=== PATIENT | female | born 1985 | race Two or more races ===

== ENCOUNTER 2020-05-15 00:59 | Inpatient (IN) ==
[2020-05-15] MEDS ORDERED: miSOPROStoL 50 MCG TAB PO PRN (02:00)
[2020-05-15] MEDS ORDERED: OXYTOCIN 30 UNITS/500 ML BAG IV PRN ×3 (02:00→11:07)
--- NOTE | 2020-05-15 02:10 | History & Physical Report ---
Date of Service May 15, 2020 Assessment & Plan (1) Supervision of normal intrauterine in primigravida: -Tracing category 1 with accelerations and variability -Gross rupture with no active labor -Discussed with patient -Recommend initial labor augmentation with p.o. Cytotec -Pain management as needed -Anticipate vaginal delivery (2) pyelectasis: -We will make pediatrics aware History of Present Illness Chief Complaint: rupture of membranes Primary Care Provider: NO PCP The patient is a 34-year-old 2 para 0, with an EDC of 19 May, at 39+ weeks gestational age, who presents to labor and delivery with spontaneous rupture of membranes. Patient states that her membranes ruptured at approximately 0000 hours on day of admission. She describes the fluid as clear. She has had some mild contractions since the rupture of the membranes. Patient's course remarkable for some pyelectasis first diagnosed on anatomy ultrasound. This was followed with serial ultrasounds and has been clinically stable throughout the . Laboratory values for the show a blood type of O+, antibody negative, rubella immune, hepatitis B negative, she had a negative cell free DNA screen, she had a normal 1 hour Glucola at 16 weeks, she had an elevated 1 hour Glucola 28 weeks, a normal 2- hour glucose tolerance test, and a negative third trimester beta strep culture. Allergies Allergy/AdvReac Type Severity Reaction Status Date / Time meloxicam Allergy rash Verified 05/15/20 01:22 Home Medications Medication Instructions Recorded Confirmed Type prenat.vits,mario,[id number] 1 tab PO DAILY 06/22/19 05/15/20 History ferrous sulfate 325 mg (65 mg 325 mg PO DAILY 12/29/19 05/15/20 History iron) tablet breast pump #1 ea 03/23/20 05/13/20 Rx Patient History Medical History (Updated 05/15/20 @ 02:08 by Arthur Farrar Jr, MD, FACOG) Abnormal biochemical finding on screening of mother, antepartum Dilated renal pelvis Encounter for anatomic survey Encounter for anatomic survey Missed with demise before 20 completed weeks of gestation Supervision of normal intrauterine in primigravida Varicella vaccine Surgical History [place] teeth removed Family History Sister Schizophrenia Social History (Updated 10/26/19 @ 14:55 by Dana Finley) Smoking Status: Never smoker Hx Alcohol Use: No Hx Substance Use: No Preferred Language: Portuguese Communication Ability: Effective 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 Beliefs That Will Affect Care: None marital status: marital status details: Liban Perez (32) [phone] Current Living Situation: Spouse Current Living Situation Comment: Liban 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[employer], 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 Other Information That Helps Us Care for You: No Assistive Devices: Glasses Physical Exam Constitutional: WD/WN, vitals as above Respiratory: Auscultation: lungs clear to auscultation bilaterally Cardiovascular: RRR, no murmur, no edema Extremities: no calf tenderness Gastrointestinal (Abdomen): Gravid: Vertex, positive heart tones, mild palpable contractions, estimated weight of 7 and half pounds Genitourinary: Cervix: Fingertip/50%/-1, gross rupture (per L&D nurse) Results & Data ([facility]) Vital Signs (Past 12 Hours) Vital Signs Temp Pulse Resp BP 05/15/20 01:24 18 05/15/20 01:20 98.4 F 77 18 136/75 Coding Level of Care Code None Diagnoses Supervision of normal intrauterine in primigravida Z34.00 pyelectasis
[2020-05-15 02:41] LABS: Hematocrit (blood only) 39.8 % (37-47); Hemoglobin 13.1 g/dL (12.0-16.0); Mean Corpuscular Hemoglobin 29.5 pg (25-34); Mean Corpuscular Hgb Conc 32.9 g/dL (32-36); Mean Corpuscular Volume 89.6 fL (80-100); Mean Platelet Volume 10.6 fL (7.4-10.4); Platelet Count 243 K/uL (130-400); RDW Coefficient of Variation 13.5 % (11.5-14.5); RDW Standard Deviation 44.2 fL (36.4-46.3); Red Blood Count 4.44 M/uL (4.2-5.4); White Blood Count 9.44 K/uL (4.8-10.8)
[2020-05-15] MEDS ORDERED: ePHEDrine sulfate 50 MG/ML AMP ONE (05:29)
[2020-05-15] MEDS ORDERED: SODIUM CHLORIDE 0.9% INJ 10 ML VIAL ONE (05:30)
[2020-05-15] MEDS ORDERED: BUPIVACAINE 0.25% 30 ML VIAL ONE (05:30)
[2020-05-15] MEDS ORDERED: fentaNYL 2MCG/ML ROPIVACAINE 1.25MG/ML 100 ML BAG EPI ONE (05:30)
[2020-05-15] MEDS ORDERED: fentaNYL citrate 100 MCG/2 ML VIAL ONE (05:30)
[2020-05-15] MEDS: LACTATED RINGER'S 1,000 ML IV PRN ×2 (05:38→08:09)
[2020-05-15] MEDS ORDERED: ePHEDrine sulfate 50 MG/ML AMP IV PRN (06:22)
[2020-05-15] MEDS ORDERED: NALOXONE HCL 0.4 MG/1 ML VIAL/CARP IV PRN (06:22)
[2020-05-15] MEDS ORDERED: fentaNYL 2MCG/ML ROPIVACAINE 1.25MG/ML 100 ML BAG EPI PRN (06:22)
[2020-05-15] MEDS ORDERED: NALOXONE HCL 1 MG in SODIUM CHLORIDE 0.9% 1000ML 1,000 ML IV PRN (06:22)
[2020-05-15] MEDS ORDERED: diphenhydrAMINE 50 MG/ML VIAL IV PRN (06:22)
[2020-05-15] MEDS ORDERED: ONDANSETRON INJ 2 MG/ML 2 ML VIAL IV PRN (06:22)
[2020-05-15] MEDS ORDERED: PROMETHAZINE HCL 6.25 MG in SODIUM CHLORIDE 0.9% 50 ML IV PRN (06:22)
--- NOTE | 2020-05-15 06:22 | Anesthesiology Consultation ---
Date of Service May 15, 2020 Assessment & Plan (1) Encounter for pre-operative examination: Chart Review Chart Review: Patient NOT seen in Pre Admission Testing and Acceptable Risk for Labor Epidural Consults Requested none ASA ASA2 Proposed Anesthesia Anesthesia Type: Labor Epidural Risk / Benefits Reviewed With: PT / POA / Parent / Guardian, Accepts Plan and Informed Consent Obtained History Height/Weight Height: 5 ft 6.14 in Weight: 83.461 kg Allergies Allergy/AdvReac Type Severity Reaction Status Date / Time meloxicam Allergy rash Verified 05/15/20 01:22 Medications Home Medications Medication Instructions Recorded Confirmed Last Taken prenat.vits,mario,nvf-[id number]-misnk 1 tab PO DAILY 06/22/19 05/15/20 05/14/20 08:00 ferrous sulfate 325 mg (65 mg 325 mg PO DAILY 12/29/19 05/15/20 05/14/20 iron) tablet breast pump #1 ea 03/23/20 05/13/20 Unknown Active Medications Generic Name Dose Route Start Last Admin Trade Name Freq PRN Reason Stop Dose Admin Lactated Ringer's 1,000 mls @ 125 mls/hr 05/15/20 02:00 05/15/20 06:19 Lr IV 05/17/20 01:59 125 mls/hr .Q8H PRN Infusion L&D Protocol Protocol Misoprostol 50 mcg 05/15/20 02:00 05/15/20 02:20 Misoprostol 50 Mcg Tab PO 06/14/20 01:59 50 mcg Q4H PRN Administration contractions NPO Date Last Intake of Fluids: 05/14/20 Time Last Intake of Fluids: 22:00 Date Last Intake of Solids: 05/14/20 Time Last Intake of Solids: 22:00 Past Medical History Medical History Abnormal biochemical finding on screening of mother, antepartum Dilated renal pelvis Encounter for anatomic survey Encounter for anatomic survey Missed with demise before 20 completed weeks of gestation Supervision of normal intrauterine in primigravida Varicella vaccine Exercise / Class Metabolic Activity II 4-5 Yardwork/Stairs/Walk up hill Past Family History Family History Sister Schizophrenia Past Surgical History Surgical History [place] teeth removed Past Anesthesia History No Hx of Anesthesia Complications and No Family Hx of Anesthesia Complications History of PONV No Hx of PONV and No Hx of Motion Sickness Social History Smoking Status: Never smoker Hx Alcohol Use: No Hx Substance Use: No Physical Exam Vital Signs Last Vital Signs Temp 36.6 C 05/15/20 06:14 Pulse 89 05/15/20 06:18 Resp 20 05/15/20 06:14 BP 112/56 L 05/15/20 06:17 Pulse Ox 99 05/15/20 06:18 ENMT Mouth: no dentition abnormality Thyromental Distance: > or= 3.5 Finger Breadths Mallampati Class: II Neck normal visual inspection Respiratory normal respiratory effort Auscultation: lungs clear to auscultation bilaterally Cardiovascular Rate/Rhythm: regular rate and regular rhythm Psychiatric Orientation: alert Testing Laboratory Results 05/15/20 02:31
--- NOTE | 2020-05-15 08:01 | Labor Progress Brief Note ---
Date of Service May 15, 2020 Subjective Reason For Note: Routine Evaluation (comfortable with the epidural) Assessment & Plan (1) Supervision of normal intrauterine in primigravida: - tracing complete - will begin 2nd stage Admission and Anticipated Discharge Date Admission Date: May 15, 2020 Physical Exam Genitourinary: Cervix: Complete/(+)1 Results & Data ([facility]) Vital Signs (Past 12 Hours) Vital Signs Temp Pulse Resp BP Pulse Ox 05/15/20 07:58 102 H 05/15/20 07:56 98 H 117/64 05/15/20 07:53 81 96 05/15/20 07:48 80 99 05/15/20 07:43 78 98 05/15/20 07:42 76 114/60 05/15/20 07:38 89 98 05/15/20 07:33 84 99 05/15/20 07:30 18 05/15/20 07:28 80 98 05/15/20 07:26 112 H 116/55 L 05/15/20 07:23 83 100 05/15/20 07:18 88 100 05/15/20 07:13 83 98 05/15/20 07:11 80 117/58 L 05/15/20 07:08 84 98 05/15/20 07:03 80 100 05/15/20 07:01 98.1 F 16 05/15/20 06:58 77 112/58 L 98 05/15/20 06:53 77 99 05/15/20 06:48 89 98 05/15/20 06:43 90 100 05/15/20 06:39 89 18 132/72 92 05/15/20 06:38 86 100 05/15/20 06:33 85 100 05/15/20 06:32 80 18 106/56 L 05/15/20 06:29 89 100/57 L 05/15/20 06:28 88 100 05/15/20 06:23 87 99 05/15/20 06:22 83 18 119/54 L 05/15/20 06:21 97 H 91 05/15/20 06:18 89 99 05/15/20 06:17 90 112/56 L 05/15/20 06:14 97.9 F 80 20 115/63 05/15/20 06:13 86 100 05/15/20 06:10 82 20 121/56 L 05/15/20 06:08 89 99 05/15/20 06:03 97 H 98 05/15/20 05:58 88 98 05/15/20 05:53 94 H 100 05/15/20 05:48 87 98 05/15/20 05:43 87 99 05/15/20 05:38 83 98 05/15/20 05:37 82 20 129/63 05/15/20 04:30 97.9 F 75 18 124/75 05/15/20 02:23 98.1 F 18 05/15/20 01:24 18 05/15/20 01:20 98.4 F 77 18 136/75 Coding Level of Care Code None Diagnoses Supervision of normal intrauterine in primigravida Z34.00
[2020-05-15] MEDS ORDERED: ERYTHROMYCIN OP OINT 1 GM PKT ONE (10:08)
--- NOTE | 2020-05-15 10:30 | Delivery Summary ---
Vaginal Delivery Summary Date of Service May 15, 2020 Vaginal Delivery Summary VAVD and 2nd Degree LAC Findings: Viable male infant with Apgars of 9 and 9. Baby delivered over a midline second degree laceration by vacuum extraction. Vacuum extraction for maternal bleeding from laceration. Cord gases cord blood samples obtained. Placenta delivered spontaneously. Midline second-degree laceration repaired with 4-0 and 2-0 Vicryl in a routine fashion. Estimated blood loss 300 cc Labor note: The patient is a 34-year-old 2 para 0, with an EDC of 19 May, at 39+ weeks gestational age, who presents to labor and delivery with spontaneous rupture of membranes. Patient states that her membranes ruptured at approximately 0000 hours on day of admission. She describes the fluid as clear. She has had some mild contractions since the rupture of the membranes. Patient's course remarkable for some pyelectasis first diagnosed on anatomy ultrasound. This was followed with serial ultrasounds and has been clinically stable throughout the . Laboratory values for the show a blood type of O+, antibody negative, rubella immune, hepatitis B negative, she had a negative cell free DNA screen, she had a normal 1 hour Glucola at 16 weeks, she had an elevated 1 hour Glucola 28 weeks, a normal 2- hour glucose tolerance test, and a negative third trimester beta strep culture. Upon admission the patient was grossly ruptured. Her cervix was fingertip dilated and 50% effaced, tracing was category 1. Discussed with the patient and recommended labor induction with p.o. Cytotec. Patient received Cytotec 50 mcg p.o. Contractions increased in intensity. Patient progressed to 4 cm dilatation and became very uncomfortable. Anesthesia was consulted and an epidural was placed. Over the next 4 hours the patient progressed to full dilatation and began her second stage. The patient was pushing effectively but approximately 1-1/2 hours into her second stage she began bleeding briskly from a midline laceration. The vertex was at a +2 station at this point. Because of the brisk bleeding from the laceration recommendation to the patient for a vacuum extraction. Verbal consent obtained. Over the next 2 contractions the baby was delivered over the midline laceration. Cord was clamped and cut. Cord gases and cord blood samples were obtained. Placenta was delivered spontaneously. Uterine atony addressed with IV Pitocin and uterine massage. Inspection of the perineum showed a long midline second-degree laceration. This was repaired with 4-0 and 2-0 Vicryl. Hemostasis was present. Estimated blood loss was 300 cc. Sponge and needle count was correct. [facility] Vaginal Delivery Charge Delivery Type Details: VAVD and 2nd Degree LAC
[2020-05-15 10:39] LABS: Base Excess Cord Arterial Bld -4.1 mEq/L (-9-1.8); CO2 Cord Arterial Blood 58 mmHg (39.1-73.5); HCO3 Cord Arterial Blood 24 mmol/L (19.7-28.5); PO2 Cord Arterial Blood 27 mmHg (4.1-31.7); pH Cord Arterial Blood 7.24 (7.1-7.38)
[2020-05-15 10:40] LABS: Oxygen Sat Cord Arterial Blood < 60.0 % (<60)
[2020-05-15] MEDS ORDERED: BENZOCAINE 20% AER SPR 82.5 GM CAN EXT PRN (11:07)
[2020-05-15] MEDS ORDERED: HYDROCORTISONE ACETATE 25 MG SUPP PR PRN (11:07)
[2020-05-15] MEDS ORDERED: SUPERCREAM 0.870% 15 GM JAR EXT PRN (11:07)
[2020-05-15] MEDS ORDERED: ACETAMINOPHEN W/CODEINE #3 1 TAB PO PRN (11:07)
[2020-05-15] MEDS ORDERED: ACETAMINOPHEN 325 MG TAB PO PRN (11:07)
--- NOTE | 2020-05-15 11:29 | Anesthesia Procedure Note ---
Date of Service May 15, 2020 Anesthesia Post Epidural Note Vital Signs Vital Signs: Temp Pulse Resp BP Pulse Ox 36.7 C 106 H 18 111/59 L 98 05/15/20 08:57 05/15/20 11:18 05/15/20 10:48 05/15/20 11:18 05/15/20 10:08 Pain Intensity Bilateral Lower Abdomen: Pain Intensity: 2 Notes Mental Status: alert / awake / arousable and participated in evaluation Patient Amnestic to Procedure: Yes Nausea / Vomiting: adequately controlled Pain: adequately controlled Airway Patency, RR, SpO2: stable & adequate BP & HR: stable & adequate Hydration State: stable & adequate Neuraxial Anesthesia: was administered and sensory block is resolving Anesthetic Complications: no major complications apparent and Pt Satisfied with anesthetic care Epidural: Removed without complications and With tip intact
[2020-05-15] MEDS ORDERED: DIPHTHERIA/TETANUS/PERTUSSIS 0.5 ML SYR/VIAL IM ONE (11:30)
[2020-05-15] MEDS: DOCUSATE SODIUM 100 MG CAP PO SCH (20:30)
--- NOTE | 2020-05-16 06:28 | Obstetrical Progress Note ---
Date of Service <Makenna Lloyd DO - Last Filed: 05/16/20 07:02> May 16, 2020 Assessment & Plan <Makenna Lloyd DO - Last Filed: 05/16/20 07:02> (1) state: PPD #1 - PNL: Rh pos, RI, GBS neg, COVID neg - Eating well, voiding well, ambulating well. - Patient with headache. Normal BP. No changes in vision. Continue Tylenol and Ibuprofen 600mg Q4H PRN - Routine vaginal delivery care -- OOB, ambulation, continue diet as tolerated - After discharge will have 6 week follow-up with Dr. Farrar. Subjective <Makenna Lloyd DO - Last Filed: 05/16/20 07:02> Johny Blum is a 34 y/o female who is PPD #1 following VAVD at 39 +2 weeks. She reports feeling well overall this morning. She does, however, report a diffuse SWENSON, rated at a 6/10, that has not changed with Tylenol. Minimal abdominal cramping well managed on analgesics. Voiding without dysuria. Tolerating meals overnight without difficulty. Patient has been able to ambulate some. + passing gas but no bowel movement. Has persistent lochia with some improvement this morning. Currently . Review of Systems Denies fever or chills. Denies shortness of breath or cough. Denies chest pain. Denies breast pain. Denies dysuria. Denies leg pain or leg swelling. + headache. Denies lightheadedness, dizziness, or changes in vision. Physical Exam <Makenna Lloyd DO - Last Filed: 05/16/20 07:02> General: Alert, oriented. No acute distress. Cardiac: Regular rate and rhythm. No murmurs. Respiratory: Clear to auscultation bilaterally a/p, no wheezes/rales/rhonchi. No increased work of breathing. Symmetrical chest rise. No respiratory distress. Abdomen: Soft, nontender, nondistended. Bowel sounds present. Uterus: Uterine fundus firm, palpable at umbilicus. Lower Extremities: No lower extremity edema or swelling. No deep calf pain. Beto's negative bilaterally. Results & Data ([facility]) <Makenna Lloyd DO - Last Filed: 05/16/20 07:02> Vital Signs (Past 12 Hours) Vital Signs Temp Pulse Resp BP Pulse Ox 05/16/20 04:25 36.5 C 85 17 108/68 97 05/15/20 23:05 36.6 C 90 16 106/73 100 05/15/20 20:14 36.8 C 87 18 101/69 <Arthur Farrar Jr, MD, FACOG - Last Filed: 05/16/20 07:06> Co-Signing Physician Notes Resident Physician Supervision Note: I was present with Dr. Lloyd during the history and exam. I discussed the case with the resident and agree with the findings and plan as documented in the note. Any exceptions or clarifications are listed here: Pt with pp headache, responsive to Tylenol, not related to maternal position. Will continue routine pp care. Documented By: Arthur Farrar Jr, MD, FACOG Resident Activity Tracking <Makenna Lloyd DO - Last Filed: 05/16/20 07:02> Resident Involvement: Resident Care Provided Care Provided: OB Delivery
[2020-05-16] MEDS: IBUPROFEN 600 MG TAB PO PRN ×2 (08:42→20:09)
[2020-05-16] MEDS: DOCUSATE SODIUM 100 MG CAP PO SCH ×2 (08:42→20:09)
[2020-05-16] MEDS: FERROUS SULFATE 325 MG TAB PO SCH (08:42)
[2020-05-16] MEDS: PRENATAL VITAMIN 1 TAB PO SCH (08:42)
[2020-05-16] MEDS ORDERED: bisacodyL 5 MG TABEC PO SCH (20:00)
[2020-05-17 06:32] LABS: Hematocrit (blood only) 28.2 % (37-47); Hemoglobin 9.3 g/dL (12.0-16.0)
--- NOTE | 2020-05-17 06:39 | Obstetrical Progress Note ---
Date of Service <Makenna Evette Lloyd - Last Filed: 05/17/20 06:38> May 17, 2020 Assessment & Plan <Makenna Evette Lloyd DO - Last Filed: 05/17/20 06:38> (1) state: PPD #2 - PNL: Rh pos, RI, GBS neg, COVID neg - Eating well, voiding well, ambulating well. - Continue Ibuprofen 600mg Q4H PRN - Routine vaginal delivery care -- OOB, ambulation, continue diet as tolerated - After discharge will have 6 week follow-up with Dr. Farrar. Subjective <Makenna Evette Lloyd - Last Filed: 05/17/20 06:38> Johny Blum is a 34 y/o female who is PPD #2 following VAVD w/ 2nd degree laceration repaired at 39 +2 weeks. She reports feeling well overall this morning. Minimal abdominal cramping and 3/10 pain well managed on analgesics. Vo iding without dysuria. Tolerating meals overnight without difficulty. Patient has been able to ambulate some. She is passing gas and has had a bowel movement. Has persistent lochia with some improvement this morning. Currently . To note, patient complained of a 6/10 headache yesterday morning. She reports that this resolved yesterday and has not recurred. Patient with no concerns of headache, vision changes, dizziness, or lightheadedness today. Review of Systems Denies fever or chills. Denies shortness of breath or cough. Denies chest pain. Denies breast pain. Denies dysuria. Denies leg pain or leg swelling. Denies headache or changes in vision. Physical Exam <Makenna Lloyd DO - Last Filed: 05/17/20 06:38> General: Alert, oriented. No acute distress. Cardiac: Regular rate and rhythm. No murmurs. Respiratory: Clear to auscultation bilaterally a/p, no wheezes/rales/rhonchi. No increased work of breathing. Symmetrical chest rise. No respiratory distress. Abdomen: Soft, nontender, nondistended. Bowel sounds present. Uterus: Uterine fundus firm, palpable 2 cm below umbilicus. Lower Extremities: No lower extremity edema or swelling. No deep calf pain. Beto's negative bilaterally. Results & Data ([facility]) <Makenna Lloyd DO - Last Filed: 05/17/20 06:38> Vital Signs (Past 12 Hours) Vital Signs Temp Pulse Resp BP Pulse Ox 05/16/20 23:50 36.4 C L 82 17 108/71 99 Laboratory Results 05/17/20 Range/Units 06:16 Hgb 9.3 L (12.0-16.0) g/dL Hct 28.2 L (37-47) % <Sky Us MD, FACOG - Last Filed: 05/17/20 06:54> Co-Signing Physician Notes Resident Physician Supervision Note: I was present with Dr. Lloyd during the history and exam. I discussed the case with the resident and agree with the findings and plan as documented in the note. Any exceptions or clarifications are listed here: [None] Documented By: Sky Us MD, FACOG Resident Activity Tracking <Makenna Lloyd DO - Last Filed: 05/17/20 06:38> Resident Involvement: Resident Care Provided Care Provided: OB Delivery
[2020-05-17] MEDS: FERROUS SULFATE 325 MG TAB PO SCH (07:54)
[2020-05-17] MEDS: PRENATAL VITAMIN 1 TAB PO SCH (07:54)
[2020-05-17] MEDS: DOCUSATE SODIUM 100 MG CAP PO SCH (07:54)
== END 2020-05-17 18:00 | disposition home or self-care (01) | DRG 807 ==
LOC: OPB 00:59 → 4S1 01:05 → 4S2 14:17